=== PATIENT | male | born 1980 | race Two or more races ===

== ENCOUNTER → 2023-04-12 | Emergency (ER) | payer BC ==
[~2023-04-12] VITALS: Ht 167.6 cm; Wt 83.9 kg
[~2023-04-12] MED LIST: CLEOCIN HCL300 MG PO; MUPIROCIN15 GM TOP
== END | disposition home or self-care (01) ==
LOC: ER 17:24
DX: S81.812A Laceration without foreign body, left lower leg, initial encounter (principal); W17.89XA Other fall from one level to another, initial encounter; Y93.89 Activity, other specified; Y92.821 Forest as the place of occurrence of the external cause; Y99.8 Other external cause status